=== PATIENT | female | born 1995 | race African-American/Black ===

== ENCOUNTER 2018-08-09 02:16 | Emergency (ER) | payer SELFPAY ==
[~2018-08-09] VITALS: Ht 162.6 cm; Wt 67.6 kg
[2018-08-09 03:05] VITALS: BP 136/75
== END 2018-08-09 03:05 | disposition home or self-care (01) ==
LOC: ED 02:16
DX: J06.9 Acute upper respiratory infection, unspecified (principal); J40 Bronchitis, not specified as acute or chronic; Z88.6 Allergy status to analgesic agent; Z88.8 Allergy status to other drugs, medicaments and biological substances